=== PATIENT | male | born 1955 | race Caucasian/White ===

== ENCOUNTER 2021-11-05 01:47 | Inpatient (IN) ==
[2021-11-05] MEDS ORDERED: Pantoprazole 40 MG VIAL IVP ONE (01:57)
[2021-11-05] MEDS: Norepinephrine 4 MG/254 ML IV.SOLN IVC SCH ×2 (03:04→13:11)
[2021-11-05 03:18] LABS: Basophils % 0.2 %; Hematocrit 19.1 % (37.5-50.1); Hemoglobin 6.2 g/dL (12.9-16.9); Immature Granulocytes % 4.9 % (0-4); Lymphocytes # 0.4 K/mcL (0.6-4.6); Lymphocytes % 2.7 %; Mean Corpuscular HGB Conc 32.5 g/dL (31.6-35.5); Mean Corpuscular Hemoglobin 33.9 pg (28.0-33.3); Mean Corpuscular Volume 104.4 fL (83.0-100.0); Mean Platelet Volume 9.7 fL (9.4-12.4); Monocytes # 0.8 K/mcL (0.0-1.3); Monocytes % 4.9 %; Neutrophils # 14.4 K/mcL (1.6-8.9); Nucleated Red Blood Cells 0.8 /100 WBC (0); Platelet Count 220 K/mcL (140-400); Red Blood Count 1.83 M/mcL (4.19-5.50); Red Cell Distribution Width 20.6 % (11.5-14.5); Segmented Neutrophils % 87.3 %; White Blood Count 16.5 K/mcL (4.3-11.1)
[2021-11-05 03:35] LABS: Alanine Aminotransferase 19 Units/L (7-52); Albumin 2.4 g/dL (3.5-5.7); Albumin/Globulin Ratio 1.2 (1.1-2.2); Alkaline Phosphatase 93 Units/L (34-104); Aspartate Amino Transferase 19 Units/L (13-39); BUN/Creatinine Ratio 35 (6-26); Bilirubin,Total 0.9 mg/dL (0.3-1.0); Blood Urea Nitrogen 26 mg/dL (8-23); Calcium 7.7 mg/dL (8.6-10.3); Carbon Dioxide 20 mEq/L (23-29); Chloride 103 mEq/L (98-107); Glucose 151 mg/dL (70-105); Osmolality,Calculated 288 (280-300); Potassium 4.6 mEq/L (3.5-5.1); Sodium 135 mEq/L (136-145); Total Protein 4.4 g/dL (6.4-8.9); eGFR For African Americans > 60 (> 60); eGFR For Non-African Americans > 60 (> 60)
[2021-11-05] MEDS ORDERED: 0.9 % Sodium Chloride 250 ML ONE ×2 (04:41→04:52)
[2021-11-05] MEDS ORDERED: Melatonin 3 MG TABLET PO PRN (05:50)
[2021-11-05] MEDS ORDERED: Naloxone 0.4 MG/ML INJ IVP PRN (05:50)
[2021-11-05] MEDS ORDERED: Ondansetron 4 MG/2 ML VIAL IVP PRN (05:50)
[2021-11-05] MEDS ORDERED: *HR* Dextrose 50 % in Water (Syg) 50 ML SYRINGE IVP PRN (07:02)
[2021-11-05] MEDS ORDERED: D5% in Water 1,000 ML IVC PRN (07:02)
[2021-11-05] MEDS ORDERED: Dextrose Gel 15 GM/37.5 ML TUBE PO PRN ×2 (07:02)
[2021-11-05 08:47] LABS: Basophils % 0.3 %; Hematocrit 21.8 % (37.5-50.1); Hemoglobin 7.3 g/dL (12.9-16.9); Immature Granulocytes % 3.5 % (0-4); Lymphocytes # 0.5 K/mcL (0.6-4.6); Lymphocytes % 4.4 %; Mean Corpuscular HGB Conc 33.5 g/dL (31.6-35.5); Mean Corpuscular Hemoglobin 31.9 pg (28.0-33.3); Mean Platelet Volume 8.8 fL (9.4-12.4); Monocytes # 0.9 K/mcL (0.0-1.3); Monocytes % 8.3 %; Neutrophils # 9.1 K/mcL (1.6-8.9); Nucleated Red Blood Cells 1.2 /100 WBC (0); Platelet Count 187 K/mcL (140-400); Red Blood Count 2.29 M/mcL (4.19-5.50); Red Cell Distribution Width 23.5 % (11.5-14.5); Segmented Neutrophils % 83.5 %; White Blood Count 10.9 K/mcL (4.3-11.1)
[2021-11-05 08:49] LABS: Mean Corpuscular Volume 95.2 fL (83.0-100.0)
[2021-11-05] MEDS: Insulin LISPRO 300 UNITS/3 ML VIAL SUBQ SCH ×2 (12:41→17:13)
[2021-11-05] MEDS: Pantoprazole 40 MG VIAL IVP SCH (17:20)
[2021-11-05 17:29] LABS: Hematocrit 20.6 % (37.5-50.1); Hemoglobin 6.8 g/dL (12.9-16.9)
[2021-11-05] MEDS: Acetaminophen 325 MG TABLET PO PRN (18:36)
[2021-11-05] MEDS: QUEtiapine Fumarate 100 MG TABLET PO SCH (19:55)
[2021-11-05] MEDS ORDERED: traZODone 50 MG TABLET PO SCH (21:00)
[2021-11-05 22:10] LABS: Hematocrit 18.2 % (37.5-50.1)
[2021-11-06] MEDS: Insulin LISPRO 300 UNITS/3 ML VIAL SUBQ SCH ×4 (00:39→17:55)
[2021-11-06] MEDS ORDERED: 0.9 % Sodium Chloride 250 ML ONE ×2 (01:14→07:51)
[2021-11-06 05:36] LABS: Hematocrit 19.5 % (37.5-50.1); Hemoglobin 6.7 g/dL (12.9-16.9); Mean Corpuscular HGB Conc 34.4 g/dL (31.6-35.5); Mean Corpuscular Hemoglobin 32.5 pg (28.0-33.3); Mean Corpuscular Volume 94.7 fL (83.0-100.0); Mean Platelet Volume 9.2 fL (9.4-12.4); Platelet Count 157 K/mcL (140-400); Red Blood Count 2.06 M/mcL (4.19-5.50); Red Cell Distribution Width 22.6 % (11.5-14.5); White Blood Count 7.4 K/mcL (4.3-11.1)
[2021-11-06 05:58] LABS: BUN/Creatinine Ratio 36 (6-26); Blood Urea Nitrogen 20 mg/dL (8-23); Calcium 7.5 mg/dL (8.6-10.3); Carbon Dioxide 26 mEq/L (23-29); Chloride 110 mEq/L (98-107); Glucose 93 mg/dL (70-105); Osmolality,Calculated 280 (280-300); Potassium 3.5 mEq/L (3.5-5.1); Sodium 134 mEq/L (136-145); eGFR For African Americans > 60 (> 60); eGFR For Non-African Americans > 60 (> 60)
[2021-11-06] MEDS: Pantoprazole 40 MG VIAL IVP SCH ×2 (06:10→16:40)
[2021-11-06] MEDS ORDERED: 0.9 % Sodium Chloride 250 ML IVC SCH (08:00)
[2021-11-06] MEDS ORDERED: Isovue-370 500 ML BOTTLE IVP ONE (08:40)
[2021-11-06 12:15] LABS: Hematocrit 21.6 % (37.5-50.1); Hemoglobin 7.2 g/dL (12.9-16.9)
[2021-11-06] MEDS ORDERED: *HR* Propofol 200 MG/20 ML VIAL IVP ONE (12:52)
[2021-11-06] MEDS ORDERED: *HR* FentaNYL (PF) 100 MCG/2 ML VIAL ONE (12:52)
[2021-11-06] MEDS ORDERED: Ondansetron 4 MG/2 ML VIAL ONE (12:53)
[2021-11-06] MEDS ORDERED: Lidocaine -MPF 2% 5 ML VIAL ONE (12:53)
[2021-11-06] MEDS ORDERED: *HR* Rocuronium Bromide 50 MG/5 ML VIAL ONE (12:55)
[2021-11-06] MEDS ORDERED: *HR* Succinylcholine 200 MG/10 ML VIAL IVP ONE (12:55)
[2021-11-06] MEDS ORDERED: Lidocaine -MPF 4% 5 ML AMPUL ONE (12:58)
[2021-11-06] MEDS ORDERED: Albumin Human 5% 12.5 GM/250 ML IV.SOLN ONE ×2 (13:09→13:54)
[2021-11-06] MEDS ORDERED: *HR* EPINEPHrine 1 MG/10 ML SYRINGE INTRATRACH PRN (13:43)
[2021-11-06] MEDS ORDERED: *HR* HYDROmorphone (PF) 1 MG/ML SYRINGE IVP PRN (15:02)
[2021-11-06] MEDS ORDERED: *HR* HYDROmorphone 2 MG TABLET PO PRN (15:02)
[2021-11-06] MEDS ORDERED: *HR* Labetalol 20 MG/4 ML SYRINGE IVP PRN (15:02)
[2021-11-06] MEDS ORDERED: Acetaminophen IV 1,000 MG/100 ML BAG IVPB ONE (15:02)
[2021-11-06] MEDS ORDERED: *HR* OxyCODONE Immed Rel 5 MG TABLET PO PRN (15:02)
[2021-11-06] MEDS ORDERED: Famotidine 20 MG/2 ML VIAL IVP ONE (15:02)
[2021-11-06 17:24] LABS: Hemoglobin 7.1 g/dL (12.9-16.9); Mean Corpuscular HGB Conc 33.8 g/dL (31.6-35.5); Mean Corpuscular Hemoglobin 32.3 pg (28.0-33.3); Mean Corpuscular Volume 95.5 fL (83.0-100.0); Mean Platelet Volume 8.7 fL (9.4-12.4); Platelet Count 166 K/mcL (140-400); White Blood Count 10.3 K/mcL (4.3-11.1)
[2021-11-06] MEDS ORDERED: Albuterol 2.5 MG/3 ML NEBULIZER IH PRN (18:28)
[2021-11-06] MEDS: QUEtiapine Fumarate 100 MG TABLET PO SCH (20:28)
[2021-11-06 23:16] LABS: Hematocrit 19.2 % (37.5-50.1); Hemoglobin 6.5 g/dL (12.9-16.9)
[2021-11-07] MEDS ORDERED: 0.9 % Sodium Chloride 250 ML ONE (02:57)
[2021-11-07] MEDS: Pantoprazole 40 MG VIAL IVP SCH ×2 (06:32→17:48)
[2021-11-07 08:51] LABS: Basophils % 0.1 %; Hematocrit 22.8 % (37.5-50.1); Hemoglobin 7.7 g/dL (12.9-16.9); Immature Granulocytes % 1.2 % (0-4); Lymphocytes # 0.3 K/mcL (0.6-4.6); Lymphocytes % 3.8 %; Mean Corpuscular HGB Conc 33.8 g/dL (31.6-35.5); Mean Corpuscular Hemoglobin 31.2 pg (28.0-33.3); Mean Corpuscular Volume 92.3 fL (83.0-100.0); Mean Platelet Volume 8.8 fL (9.4-12.4); Monocytes # 0.6 K/mcL (0.0-1.3); Monocytes % 8.5 %; Neutrophils # 6.4 K/mcL (1.6-8.9); Nucleated Red Blood Cells 0.7 /100 WBC (0); Platelet Count 132 K/mcL (140-400); Red Blood Count 2.47 M/mcL (4.19-5.50); Red Cell Distribution Width 19.8 % (11.5-14.5); Segmented Neutrophils % 86.4 %; White Blood Count 7.4 K/mcL (4.3-11.1)
[2021-11-07 08:58] LABS: INR 1.2; Prothrombin Time 13.5 Seconds (9.4-12.1)
[2021-11-07 09:10] LABS: BUN/Creatinine Ratio 22 (6-26); Blood Urea Nitrogen 11 mg/dL (8-23); Carbon Dioxide 29 mEq/L (23-29); Chloride 106 mEq/L (98-107); Glucose 112 mg/dL (70-105); Magnesium 1.4 mg/dL (1.6-2.6); Osmolality,Calculated 278 (280-300); Potassium 3.7 mEq/L (3.5-5.1); Sodium 134 mEq/L (136-145); eGFR For African Americans > 60 (> 60); eGFR For Non-African Americans > 60 (> 60)
[2021-11-07 14:57] LABS: Hematocrit 23.9 % (37.5-50.1)
[2021-11-07] MEDS: QUEtiapine Fumarate 100 MG TABLET PO SCH (21:04)
[2021-11-07] MEDS: traZODone 50 MG TABLET PO PRN (21:05)
[2021-11-07 21:26] LABS: Hematocrit 23.9 % (37.5-50.1)
[2021-11-07] MEDS: Acetaminophen 325 MG TABLET PO PRN (22:00)
[2021-11-08] MEDS: Acetaminophen 325 MG TABLET PO PRN ×3 (05:36→23:06)
[2021-11-08] MEDS: Pantoprazole 40 MG VIAL IVP SCH ×2 (05:37→16:31)
[2021-11-08 06:10] LABS: Basophils % 0.3 %; Eosinophils % 0.2 %; Hematocrit 23.6 % (37.5-50.1); Hemoglobin 7.9 g/dL (12.9-16.9); Immature Granulocytes % 0.7 % (0-4); Lymphocytes # 0.4 K/mcL (0.6-4.6); Lymphocytes % 7.2 %; Mean Corpuscular HGB Conc 33.5 g/dL (31.6-35.5); Mean Corpuscular Hemoglobin 31.3 pg (28.0-33.3); Mean Corpuscular Volume 93.7 fL (83.0-100.0); Mean Platelet Volume 9.1 fL (9.4-12.4); Monocytes # 0.7 K/mcL (0.0-1.3); Monocytes % 11.5 %; Neutrophils # 4.7 K/mcL (1.6-8.9); Platelet Count 145 K/mcL (140-400); Red Blood Count 2.52 M/mcL (4.19-5.50); Red Cell Distribution Width 20.5 % (11.5-14.5); Segmented Neutrophils % 80.1 %; White Blood Count 5.8 K/mcL (4.3-11.1)
[2021-11-08 06:32] LABS: BUN/Creatinine Ratio 13 (6-26); Blood Urea Nitrogen 7 mg/dL (8-23); Calcium 8.1 mg/dL (8.6-10.3); Carbon Dioxide 30 mEq/L (23-29); Chloride 100 mEq/L (98-107); Glucose 102 mg/dL (70-105); Magnesium 1.4 mg/dL (1.6-2.6); Osmolality,Calculated 280 (280-300); Potassium 3.5 mEq/L (3.5-5.1); Sodium 136 mEq/L (136-145); eGFR For African Americans > 60 (> 60); eGFR For Non-African Americans > 60 (> 60)
[2021-11-08] MEDS: Insulin LISPRO 300 UNITS/3 ML VIAL SUBQ SCH ×3 (08:10→16:42)
[2021-11-08] MEDS: carvediloL 25 MG TABLET PO SCH (16:29)
[2021-11-08] MEDS: lisinopriL 5 MG TABLET PO SCH (16:36)
[2021-11-08 20:20] LABS: Hematocrit 25.1 % (37.5-50.1); Hemoglobin 8.2 g/dL (12.9-16.9)
[2021-11-08] MEDS: QUEtiapine Fumarate 100 MG TABLET PO SCH (21:26)
[2021-11-08] MEDS: traZODone 50 MG TABLET PO PRN (21:27)
[2021-11-09 02:11] LABS: Hematocrit 24.5 % (37.5-50.1); Hemoglobin 8.1 g/dL (12.9-16.9)
[2021-11-09] MEDS: Pantoprazole 40 MG VIAL IVP SCH ×2 (05:40→17:14)
[2021-11-09] MEDS: carvediloL 25 MG TABLET PO SCH ×2 (08:06→17:11)
[2021-11-09] MEDS: Aspirin Enteric Coated 81 MG Tablet PO SCH (08:06)
[2021-11-09] MEDS: lisinopriL 5 MG TABLET PO SCH (08:11)
[2021-11-09] MEDS: Insulin LISPRO 300 UNITS/3 ML VIAL SUBQ SCH ×3 (08:14→17:11)
[2021-11-09 20:56] LABS: Hematocrit 26.7 % (37.5-50.1); Hemoglobin 8.7 g/dL (12.9-16.9)
[2021-11-09] MEDS: Acetaminophen 325 MG TABLET PO PRN (21:53)
[2021-11-09] MEDS: traZODone 50 MG TABLET PO PRN (21:53)
[2021-11-09] MEDS: QUEtiapine Fumarate 100 MG TABLET PO SCH (21:54)
[2021-11-10 05:41] LABS: Hematocrit 26.1 % (37.5-50.1); Hemoglobin 8.4 g/dL (12.9-16.9)
[2021-11-10] MEDS: Pantoprazole 40 MG VIAL IVP SCH (06:34)
[2021-11-10] MEDS: Acetaminophen 325 MG TABLET PO PRN (06:41)
[2021-11-10] MEDS ORDERED: carvediloL 25 MG TABLET PO SCH (08:00)
[2021-11-10 08:30] VITALS: O2SAT 97
[2021-11-10] MEDS ORDERED: lisinopriL 5 MG TABLET PO SCH (09:00)
[2021-11-10] MEDS: Insulin LISPRO 300 UNITS/3 ML VIAL SUBQ SCH (09:17)
[2021-11-10] MEDS: Aspirin Enteric Coated 81 MG Tablet PO SCH (09:19)
[2021-11-10 10:03] VITALS: BP 118/68; PULSE 90; TEMP 97.6
== END 2021-11-10 12:46 | disposition home or self-care (01) | DRG 378 ==
LOC: EMEROOARM 01:47 → ICNU 04:19 → SUATTDRO 04:19 → ICNU 05:30 → 2NENU 07:46 → 3ANU 11:12
PROVIDERS: ADMIT Internal Medicine; ATTEND Internal Medicine

== ENCOUNTER 2021-12-28 22:24 | Inpatient (IN) ==
[2021-12-29] MEDS ORDERED: Naloxone 0.4 MG/ML INJ IVP PRN (01:57)
[2021-12-29] MEDS ORDERED: Ondansetron 4 MG/2 ML VIAL IVP PRN (01:57)
[2021-12-29] MEDS ORDERED: Acetaminophen 325 MG TABLET PO PRN (01:57)
[2021-12-29] MEDS ORDERED: Ipratropium/Albuterol Neb 3 ML IH PRN (02:01)
[2021-12-29 02:58] LABS: Basophils % 0.2 %; Hemoglobin 12.1 g/dL (12.9-16.9); Lymphocytes # 0.3 K/mcL (0.6-4.6); Lymphocytes % 4.6 %; Mean Corpuscular HGB Conc 32.7 g/dL (31.6-35.5); Mean Corpuscular Hemoglobin 33.4 pg (28.0-33.3); Mean Corpuscular Volume 102.2 fL (83.0-100.0); Mean Platelet Volume 8.7 fL (9.4-12.4); Monocytes # 0.1 K/mcL (0.0-1.3); Monocytes % 1.6 %; Neutrophils # 5.7 K/mcL (1.6-8.9); Platelet Count 269 K/mcL (140-400); Red Blood Count 3.62 M/mcL (4.19-5.50); Red Cell Distribution Width 20.5 % (11.5-14.5); Segmented Neutrophils % 92.6 %; White Blood Count 6.1 K/mcL (4.3-11.1)
[2021-12-29 02:59] LABS: VBG HCO3 25 mEq/L (21-27); VBG PCO2 40 mmHg (41-51); VBG PH 7.41 pH Units (7.32-7.42); VBG PO2 176 mmHg (25-50)
[2021-12-29] MEDS ORDERED: Perflutren Lipid Microsphere 1.3 ML in 0.9 % Sodium Chloride 8.7 ML IVP PRN (02:59)
[2021-12-29 03:07] LABS: Prothrombin Time 11.3 Seconds (9.4-12.1)
[2021-12-29 03:24] LABS: Alanine Aminotransferase 24 Units/L (7-52); Albumin 3.2 g/dL (3.5-5.7); Albumin/Globulin Ratio 1.1 (1.1-2.2); Alkaline Phosphatase 81 Units/L (34-104); Aspartate Amino Transferase 12 Units/L (13-39); BUN/Creatinine Ratio 20 (6-26); Bilirubin,Direct 0.1 mg/dL (0.0-0.2); Bilirubin,Indirect 0.3 mg/dL (0.0-1.0); Bilirubin,Total 0.4 mg/dL (0.3-1.0); Blood Urea Nitrogen 15 mg/dL (8-23); Calcium 8.8 mg/dL (8.6-10.3); Carbon Dioxide 26 mEq/L (23-29); Chloride 97 mEq/L (98-107); Glucose 164 mg/dL (70-105); Osmolality,Calculated 276 (280-300); Phosphorous 3.7 mg/dL (2.7-4.5); Potassium 4.5 mEq/L (3.5-5.1); Sodium 131 mEq/L (136-145); Total Protein 6.2 g/dL (6.4-8.9); Troponin I 0.06 ng/mL (< 0.04); eGFR For African Americans > 60 (> 60); eGFR For Non-African Americans > 60 (> 60)
[2021-12-29 03:32] LABS: Thyroid Stimulating Hormone 1.509 mcIU/mL (0.340-5.600)
[2021-12-29 03:40] LABS: Bilirubin,Urine Negative (Negative); Blood,Urine Negative (Negative); Clarity,Urine Clear (Clear); Color,Urine Light-Yellow (Yellow); Glucose,Urine (UA) Normal (Normal); Ketones,Urine Negative (Negative); Leukocyte Esterase,Urine Negative (Negative); Nitrite,Urine Negative (Negative); Protein,Urine Trace mg/dL (Neg-Trace); Specific Gravity,Urine > 1.030 (1.010-1.025); Urobilinogen,Urine Normal (Normal)
[2021-12-29] MEDS ORDERED: methylPREDNISolone 125 MG/2 ML VIAL IVP SCH (06:00)
[2021-12-29] MEDS ORDERED: *HR* Enoxaparin 40 MG/0.4 ML SYRINGE SQ ONE (09:00)
[2021-12-29] MEDS ORDERED: *HR* Enoxaparin 30 MG/0.3 ML SYRINGE SQ SCH (09:00)
[2021-12-29] MEDS: Piperacillin/Tazobactam 3.375 GM in 0.9 % Sodium Chloride Mini Bag 100 ML IVPB SCH ×2 (09:16→15:41)
[2021-12-29] MEDS: Doxycycline 100 MG in 0.9 % Sodium Chloride Mini Bag 100 ML IVPB SCH ×2 (09:37→21:31)
[2021-12-29] MEDS ORDERED: Vancomycin 1,500 MG/265 ML IV.SOLN IVPB ONE (10:00)
[2021-12-29 10:14] LABS: Troponin I 0.06 ng/mL (< 0.04)
[2021-12-29] MEDS: Ipratropium/Albuterol Neb 3 ML IH SCH ×4 (11:01→23:22)
[2021-12-29] MEDS: Budesonide/Formoterol 160/4.5 1 PUFF INH IH SCH ×2 (11:01→20:33)
[2021-12-29] MEDS: *HR* OxyCODONE Immed Rel 5 MG TABLET PO PRN ×2 (11:15→21:36)
[2021-12-29 11:18] LABS: C-Reactive Protein < 5 mg/L (Less than 10)
[2021-12-29] MEDS: Aspirin Enteric Coated 81 MG Tablet PO SCH (11:55)
[2021-12-29] MEDS ORDERED: Dextrose Gel 15 GM/37.5 ML TUBE PO PRN ×2 (12:23)
[2021-12-29] MEDS ORDERED: D5% in Water 1,000 ML IVC PRN (12:23)
[2021-12-29] MEDS ORDERED: *HR* Dextrose 50 % in Water (Syg) 50 ML SYRINGE IVP PRN (12:23)
[2021-12-29] MEDS: predniSONE 20 MG TABLET PO SCH (14:05)
[2021-12-29] MEDS: *HR* HYDROcodone/Acet 5/325 mg TABLET PO PRN (15:15)
[2021-12-29] MEDS ORDERED: Isovue-370 500 ML BOTTLE IVP ONE (15:18)
[2021-12-29] MEDS: Insulin LISPRO 300 UNITS/3 ML VIAL SUBQ SCH ×2 (16:08→21:05)
[2021-12-29] MEDS ORDERED: Vancomycin 1,250 MG/262.5 ML IV.SOLN IVPB SCH (22:00)
[2021-12-30 01:26] LABS: Mean Corpuscular HGB Conc 32.8 g/dL (31.6-35.5); Mean Corpuscular Hemoglobin 33.9 pg (28.0-33.3); Mean Corpuscular Volume 103.2 fL (83.0-100.0); Mean Platelet Volume 9.3 fL (9.4-12.4); Platelet Count 229 K/mcL (140-400); Red Cell Distribution Width 20.4 % (11.5-14.5)
[2021-12-30 01:28] LABS: Hemoglobin 10.5 g/dL (12.9-16.9)
[2021-12-30 01:47] LABS: BUN/Creatinine Ratio 25 (6-26); Blood Urea Nitrogen 18 mg/dL (8-23); Calcium 8.6 mg/dL (8.6-10.3); Carbon Dioxide 27 mEq/L (23-29); Chloride 93 mEq/L (98-107); Glucose 157 mg/dL (70-105); Osmolality,Calculated 269 (280-300); Potassium 4.6 mEq/L (3.5-5.1); Sodium 127 mEq/L (136-145); eGFR For African Americans > 60 (> 60); eGFR For Non-African Americans > 60 (> 60)
[2021-12-30] MEDS: Ipratropium/Albuterol Neb 3 ML IH SCH ×5 (03:31→20:27)
[2021-12-30] MEDS: *HR* HYDROcodone/Acet 5/325 mg TABLET PO PRN ×3 (03:41→23:52)
[2021-12-30] MEDS: Piperacillin/Tazobactam 3.375 GM in 0.9 % Sodium Chloride Mini Bag 100 ML IVPB SCH ×4 (03:42→20:39)
[2021-12-30] MEDS: *HR* Enoxaparin 40 MG/0.4 ML SYRINGE SQ SCH (06:01)
[2021-12-30] MEDS: Budesonide/Formoterol 160/4.5 1 PUFF INH IH SCH ×2 (07:17→20:27)
[2021-12-30] MEDS: Insulin LISPRO 300 UNITS/3 ML VIAL SUBQ SCH ×4 (08:29→20:41)
[2021-12-30] MEDS: Aspirin Enteric Coated 81 MG Tablet PO SCH (09:08)
[2021-12-30] MEDS: Gabapentin 100 MG CAPSULE PO SCH ×3 (09:09→20:37)
[2021-12-30] MEDS: predniSONE 20 MG TABLET PO SCH (09:09)
[2021-12-30] MEDS: Doxycycline 100 MG in 0.9 % Sodium Chloride Mini Bag 100 ML IVPB SCH ×2 (09:09→22:31)
[2021-12-30] MEDS: *HR* OxyCODONE Immed Rel 5 MG TABLET PO PRN ×2 (15:37→21:39)
[2021-12-30] MEDS ORDERED: NON-FORMULARY MEDICATION 1 EACH EACH (Quetiapine Fumarate [Seroquel] 400 MG Tablet) PO SCH (21:15)
[2021-12-30] MEDS: traZODone 50 MG TABLET PO SCH (23:44)
[2021-12-30] MEDS: QUEtiapine Fumarate 100 MG, QUEtiapine Fumarate 300 MG PO SCH (23:44)
[2021-12-31] MEDS: Ipratropium/Albuterol Neb 3 ML IH SCH ×4 (00:19→11:27)
[2021-12-31 01:52] LABS: Hematocrit 29.2 % (37.5-50.1); Hemoglobin 9.8 g/dL (12.9-16.9); Mean Corpuscular HGB Conc 33.6 g/dL (31.6-35.5); Mean Corpuscular Hemoglobin 34.4 pg (28.0-33.3); Mean Corpuscular Volume 102.5 fL (83.0-100.0); Mean Platelet Volume 9.4 fL (9.4-12.4); Platelet Count 202 K/mcL (140-400); Red Blood Count 2.85 M/mcL (4.19-5.50); Red Cell Distribution Width 19.9 % (11.5-14.5); White Blood Count 9.2 K/mcL (4.3-11.1)
[2021-12-31 02:08] LABS: BUN/Creatinine Ratio 32 (6-26); Blood Urea Nitrogen 17 mg/dL (8-23); Calcium 8.1 mg/dL (8.6-10.3); Carbon Dioxide 28 mEq/L (23-29); Chloride 95 mEq/L (98-107); Glucose 130 mg/dL (70-105); Osmolality,Calculated 271 (280-300); Potassium 4.6 mEq/L (3.5-5.1); Sodium 129 mEq/L (136-145); eGFR For African Americans > 60 (> 60); eGFR For Non-African Americans > 60 (> 60)
[2021-12-31] MEDS: Piperacillin/Tazobactam 3.375 GM in 0.9 % Sodium Chloride Mini Bag 100 ML IVPB SCH (04:37)
[2021-12-31] MEDS: *HR* Enoxaparin 40 MG/0.4 ML SYRINGE SQ SCH (04:38)
[2021-12-31] MEDS: *HR* OxyCODONE Immed Rel 5 MG TABLET PO PRN ×3 (04:38→18:36)
[2021-12-31] MEDS: Budesonide/Formoterol 160/4.5 1 PUFF INH IH SCH ×2 (07:36→20:17)
[2021-12-31] MEDS: Gabapentin 100 MG CAPSULE PO SCH ×3 (10:33→20:11)
[2021-12-31] MEDS: *HR* HYDROcodone/Acet 5/325 mg TABLET PO PRN (10:33)
[2021-12-31] MEDS: predniSONE 20 MG TABLET PO SCH (10:34)
[2021-12-31] MEDS: Aspirin Enteric Coated 81 MG Tablet PO SCH (10:34)
[2021-12-31] MEDS: Insulin LISPRO 300 UNITS/3 ML VIAL SUBQ SCH ×4 (10:58→20:26)
[2021-12-31] MEDS: Doxycycline 100 MG in 0.9 % Sodium Chloride Mini Bag 100 ML IVPB SCH (10:59)
[2021-12-31] MEDS: Doxycycline 100 MG CAPSULE PO SCH ×2 (12:02→20:11)
[2021-12-31] MEDS ORDERED: Ipratropium/Albuterol Neb 3 ML IH PRN (13:53)
[2021-12-31] MEDS: traZODone 50 MG TABLET PO SCH (20:10)
[2021-12-31] MEDS: QUEtiapine Fumarate 100 MG, QUEtiapine Fumarate 300 MG PO SCH (20:11)
[2022-01-01] MEDS: *HR* OxyCODONE Immed Rel 5 MG TABLET PO PRN ×2 (00:31→09:09)
[2022-01-01 01:49] LABS: Basophils % 0.1 %; Hematocrit 26.4 % (37.5-50.1); Hemoglobin 8.9 g/dL (12.9-16.9); Immature Granulocytes % 1.4 % (0-4); Lymphocytes # 0.5 K/mcL (0.6-4.6); Mean Corpuscular HGB Conc 33.7 g/dL (31.6-35.5); Mean Corpuscular Hemoglobin 34.6 pg (28.0-33.3); Mean Corpuscular Volume 102.7 fL (83.0-100.0); Mean Platelet Volume 9.3 fL (9.4-12.4); Monocytes # 0.6 K/mcL (0.0-1.3); Neutrophils # 6.9 K/mcL (1.6-8.9); Platelet Count 181 K/mcL (140-400); Red Blood Count 2.57 M/mcL (4.19-5.50); Segmented Neutrophils % 85.5 %
[2022-01-01 02:06] LABS: BUN/Creatinine Ratio 41 (6-26); Blood Urea Nitrogen 23 mg/dL (8-23); Calcium 8.1 mg/dL (8.6-10.3); Carbon Dioxide 29 mEq/L (23-29); Chloride 96 mEq/L (98-107); Glucose 135 mg/dL (70-105); Osmolality,Calculated 274 (280-300); Potassium 4.8 mEq/L (3.5-5.1); Sodium 129 mEq/L (136-145); eGFR For African Americans > 60 (> 60); eGFR For Non-African Americans > 60 (> 60)
[2022-01-01] MEDS: *HR* Enoxaparin 40 MG/0.4 ML SYRINGE SQ SCH (06:07)
[2022-01-01] MEDS: Budesonide/Formoterol 160/4.5 1 PUFF INH IH SCH (07:15)
[2022-01-01] MEDS: Insulin LISPRO 300 UNITS/3 ML VIAL SUBQ SCH ×2 (08:37→12:21)
[2022-01-01] MEDS: predniSONE 20 MG TABLET PO SCH (09:03)
[2022-01-01] MEDS: Doxycycline 100 MG CAPSULE PO SCH (09:03)
[2022-01-01] MEDS: Aspirin Enteric Coated 81 MG Tablet PO SCH (09:03)
[2022-01-01] MEDS: Gabapentin 100 MG CAPSULE PO SCH ×2 (09:04→15:52)
[2022-01-01 14:47] VITALS: BP 117/62; PULSE 88; TEMP 97.9; O2SAT 97
[2022-01-01] MEDS: *HR* HYDROcodone/Acet 5/325 mg TABLET PO PRN (15:52)
== END 2022-01-01 16:30 | disposition home health service (06) | DRG 193 ==
LOC: 2ANU → SUATTDRO 12-30 11:28
PROVIDERS: ADMIT Student in an Organized Health Care Education/Training Program; ATTEND Internal Medicine